=== PATIENT | female | born 1980 | race African-American/Black ===

== ENCOUNTER 2020-11-23 10:50 | Emergency (ER) | payer OTHER ==
[2020-11-23 10:57] VITALS: BP 137/84; PULSE 84; TEMP 98.6; BMI 51.3
[2020-11-23] MEDS ORDERED: LIDOCAINE 5% TOPICAL PATCH TP ONE (11:22)
[2020-11-23] MEDS ORDERED: CYCLOBENZAPRINE HCL 10 MG TABLET (FP) PO ONE (11:22)
[2020-11-23] MEDS ORDERED: KETOROLAC TROMETHAMINE 60 MG/2 ML VIAL IM ONE (11:22)
[2020-11-23] MEDS ORDERED: KETOROLAC TROMETHAMINE 30 MG/1 ML VIAL ONE (11:26)
[2020-11-23] MEDS ORDERED: LIDOCAINE 5% TOPICAL PATCH ONE (11:26)
[2020-11-23] MEDS ORDERED: CYCLOBENZAPRINE HCL 10 MG TABLET (FP) ONE (11:26)
[2020-11-23] MEDS ORDERED: LIDOCAINE PATCH REMOVAL MC ONE (22:00)
== END 2020-11-23 11:53 | disposition home or self-care (01) ==
LOC: JERFT 10:50 → JER 10:50 → JERFT 11:53
PROC: 3E0233Z Introduction of Anti-inflammatory into Muscle, Percutaneous Approach (ICD-10-PCS; principal; 2020-11-23)
DX: M54.2 Cervicalgia (principal)
CPT/HCPCS: 99284-25

== ENCOUNTER 2020-11-30 11:53 | Emergency (ER) | payer OTHER ==
[2020-11-30 12:11] VITALS: BP 143/91; PULSE 105; TEMP 98.4; BMI 51.3
[2020-11-30] MEDS ORDERED: KETOROLAC TROMETHAMINE 30 MG/1 ML VIAL IM ONE (12:29)
[2020-11-30] MEDS ORDERED: METHOCARBAMOL 500 MG TABLET PO ONE (12:30)
[2020-11-30] MEDS ORDERED: METHOCARBAMOL 500 MG TABLET ONE (12:32)
[2020-11-30] MEDS ORDERED: KETOROLAC TROMETHAMINE 30 MG/1 ML VIAL ONE (12:32)
== END 2020-11-30 13:45 | disposition home or self-care (01) ==
LOC: JERFT 11:53
PROC: 3E0233Z Introduction of Anti-inflammatory into Muscle, Percutaneous Approach (ICD-10-PCS; principal; 2020-11-30)
DX: M25.512 Pain in left shoulder (principal)
CPT/HCPCS: 73030-TC-LT-FY; 99284-25